=== PATIENT | female | born 1965 | race Caucasian/White ===

== ENCOUNTER 2017-05-17 09:41 | Emergency (ER) | payer BC ==
[~2017-05-17] VITALS: Ht 162.6 cm; Wt 81.0 kg
[2017-05-17 09:44] VITALS: BP 109/64
[2017-05-17] MEDS ORDERED: dexamethasone sod phosphate 10mg/ml inj PO STA (10:05)
[2017-05-17] MEDS ORDERED: ALBU18HF2 INH (10:05)
== END 2017-05-17 10:30 | disposition home or self-care (01) ==
LOC: ER 09:41
DX: J18.9 Pneumonia, unspecified organism (principal); Z88.7 Allergy status to serum and vaccine
CPT/HCPCS: 99283; J1100

== ENCOUNTER 2018-11-12 08:56 | Emergency (ER) | payer BC ==
[~2018-11-12] VITALS: Ht 162.6 cm; Wt 85.0 kg
[~2018-11-12 08:56] MED LIST: ALBU18HF2 INH
[2018-11-12] MEDS ORDERED: ondansetron/PF 4mg/2ml inj IV ONE (09:25)
[2018-11-12] MEDS ORDERED: morphine 4 MG/ML inj SYRINge IV PRN (09:25)
[2018-11-12] MEDS ORDERED: normal saline 1000ML IV soln IVB ONE (09:25)
[2018-11-12 10:03] LABS: BASOPHILS % (AUTO) 0.2 % (0-1); EOSINOPHILS % (AUTO) 0.2 % (0-6); HEMOGLOBIN 14.5 g/dl (12.0-16.0); LYMPHOCYTES # (AUTO) 1.1 X10'3 (1.1-4.8); LYMPHOCYTES % (AUTO) 8.6 % (21-51); MEAN CORPUSCULAR HEMOGLOBIN 29.9 PG (27.0-31.0); MEAN CORPUSCULAR HGB CONC 34.5 g/dL (33.0-36.5); MEAN CORPUSCULAR VOLUME 86.9 FL (78-98); MEAN PLATELET VOLUME 8.3 FL (7.4-10.4); MONOCYTES # (AUTO) 0.8 X10'3 (0-0.9); MONOCYTES % (AUTO) 6.2 % (2-12); NEUTROPHILS # (AUTO) 10.8 X10'3 (1.8-7.7); NEUTROPHILS % (AUTO) 84.8 % (42-75); PLATELET COUNT 219 X10'3 (140-440); RED BLOOD COUNT 4.84 X10'6 (4.20-5.60); RED CELL DISTRIBUTION WIDTH 12.1 % (11.5-14.5); WHITE BLOOD COUNT 12.8 X10'3 (4.5-11.0)
[2018-11-12 10:17] LABS: ALANINE AMINOTRANSFERASE 32 U/L (12-78); ALBUMIN 3.7 G/DL (3.4-5.0); ALKALINE PHOSPHATASE 70 IU/L (46-116); ANION GAP 9 (8-16); ASPARTATE AMINO TRANSFERASE 7 U/L (10-37); BILIRUBIN,TOTAL 0.6 MG/DL (0.1-1.0); BLOOD UREA NITROGEN 11 MG/DL (7-18); BUN/CREATININE RATIO 15.7 (6.6-38.0); CALCIUM 8.1 MG/DL (8.5-10.1); CHLORIDE 100 MMOL/L (99-107); GLUCOSE 239 MG/DL (70-104); POTASSIUM 3.8 MMOL/L (3.5-5.1); SODIUM 136 MMOL/L (135-145); TOTAL PROTEIN 7.5 G/DL (6.4-8.2); eGFR 88 ML/MIN
[2018-11-12] MEDS ORDERED: METR500T PO (10:32)
[2018-11-12] MEDS ORDERED: ONDA4TAB6 PO (10:32)
[2018-11-12] MEDS ORDERED: TRAM50TA2 PO (10:32)
[2018-11-12] MEDS ORDERED: CIPR-259 PO (10:32)
[2018-11-12 10:48] VITALS: BP 142/85
== END 2018-11-12 10:50 | disposition home or self-care (01) ==
LOC: ER 08:57
DX: K57.32 Diverticulitis of large intestine without perforation or abscess without bleeding (principal); R73.9 Hyperglycemia, unspecified; Z88.7 Allergy status to serum and vaccine; Z79.899 Other long term (current) drug therapy
CPT/HCPCS: 36415; 80053; 85025; 96374; 96375; 99283; J2270; J2405; J7030